=== PATIENT | female | born 1965 | race Two or more races ===

== ENCOUNTER 2018-09-13 13:24 | Emergency (ER) | payer OTHER ==
--- NOTE | 2018-09-13 13:31 | PDOC ---
Rapid Medical Evaluation Time Seen by Provider: 09/13/18 13:28 Medical Evaluation: Allergies Allergy/AdvReac Type Severity Reaction Status Date / Time No Known Allergies Allergy Verified 06/15/16 16:34 09/13/18 13:28 I performed a brief in-person evaluation of this patient. Chief complaint: Throat pain, facial swelling, and fever x 5 days Pertinent physical exam findings: Tenderness right side of neck. Tonsils 2+, not erythematous. Afebrile here. No trisumus. I have ordered the following: Rapid strep. BP 194/107, patient states is taking HTN meds as prescribed. Patient to proceed to the ED for further evaluation. Discharge Disposition - Diagnosis Throat pain in adult Hypertension Qualifiers: Hypertension type: unspecified Qualified Code(s): I10 - Essential (primary) hypertension - Referrals - Patient Instructions - Post Discharge Activity
[2018-09-13 13:32] VITALS: TEMP 98.8; BMI 33.3
[2018-09-13] MEDS ORDERED: LIDOCAINE VISCOUS 2% ORAL/TOP 20 ML UNIT-DOSE CUP MM ONE (14:13)
--- NOTE | 2018-09-13 14:36 | PDOC ---
History of Present Illness - General Chief Complaint: Sore Throat Stated Complaint: SWOLLWN FACE/ THROAT PAIN Time Seen by Provider: 09/13/18 13:28 History Source: Patient Exam Limitations: Language Barrier (Phone Pickle Maker used) Past History - Past Medical History Allergies/Adverse Reactions: Allergies Allergy/AdvReac Type Severity Reaction Status Date / Time No Known Allergies Allergy Verified 06/15/16 16:34 Home Medications: Ambulatory Orders Lisinopril [Prinivil] 40 mg PO DAILY 10/04/12 Amlodipine Besylate [Norvasc -] 2.5 mg PO DAILY 01/25/15 Cyclobenzaprine HCl [Flexeril] 5 mg PO TID PRN #20 tablet 01/25/15 Furosemide [Lasix -] 40 mg PO DAILY 01/25/15 Metoprolol Tartrate [Lopressor -] 25 mg PO BID 01/25/15 Naproxen 500 mg PO BID #30 tablet 05/25/16 Oxycodone HCl/Acetaminophen [Percocet 5/325 -] 1 tab PO Q4H #20 tablet MDD 6 predniSONE [Deltasone -] 40 mg PO DAILY #10 tablet 05/25/16 Cyclobenzaprine HCl [Flexeril -] 10 mg PO HS #7 tablet 06/15/16 Ibuprofen [Motrin -] 600 mg PO TID PRN #21 tablet 06/15/16 Cardiac Disorders: Yes (MILD AORTIC STENOSIS) COPD: No HTN: Yes Hypercholesterolemia: Yes - Suicide/Smoking/Psychosocial Hx Smoking Status: No Smoking History: Never smoked Have you smoked in the past 12 months: No Number of Cigarettes Smoked Daily: 0 Hx Alcohol Use: No Drug/Substance Use Hx: No Substance Use Type: None *Physical Exam - Vital Signs Last Vital Signs Temp Pulse Resp BP Pulse Ox 98.8 F 88 18 194/107 H 98 09/13/18 13:30 09/13/18 13:30 09/13/18 13:30 09/13/18 13:30 09/13/18 13:30 - Physical Exam General Appearance: No: Apparent Distress HEENT: positive: Pharynx Normal, Other (Several dental fillings noted, tooth #2 with filling and some decay noted, no gum swelling, no evidence of dental abscess) Respiratory/Chest: positive: Lungs Clear, Normal Breath Sounds. negative: Respiratory Distress Integumentary: positive: Normal Color Neurologic: positive: Alert, Normal Mood/Affect Moderate Sedation - Procedure Monitoring Vital Signs: Procedure Monitoring Vital Signs Temperature 98.8 F 09/13/18 13:30 Pulse Rate 88 09/13/18 13:30 Respiratory Rate 18 09/13/18 13:30 Blood Pressure 194/107 H 09/13/18 13:30 O2 Sat by Pulse Oximetry (%) 98 09/13/18 13:30 Medical Decision Making - Medical Decision Making 52 y/o F with hx of HTN presents with R upper molar tooth pain x 2 weeks. Saw dentist 2 weeks ago and was prescribed Amoxicillin 500 mg TID x 1 week, but patient was only taking it twice a day and has not yet finished the antibiotics. Has been taking Motrin 800 mg but it does not help with pain and it is painful for her to eat food due to pain. Mentions tooth pain radiating to throat. Denies fever, sob, cp, n/v. Patient teeth in poor condition; multiple fillings with some decay noted at site of teeth Given viscous lidocaine to help with discomfort Will repeat vital signs 09/13/18 14:28 Repeat BP 183/104 Patient asymptomatic Likely elevated from pain Patient did not want Motrin here; received viscous lidocaine States she can f/u with dentist tomorrow 09/13/18 14:42 *DC/Admit/Observation/Transfer Diagnosis at time of Disposition: Pain, dental - Discharge Dispostion Disposition: HOME Condition at time of disposition: Stable Decision to Admit order: No - Referrals - Patient Instructions Printed Discharge Instructions: DI for Dental Pain Additional Instructions: Thank you for choosing [facility]. It was a pleasure taking care of you. You may take Motrin 600 mg every 6 hours by mouth as needed for mild to moderate pain. Take Motrin with food. Please continue the Amoxicillin as was prescribed - three times a day Follow-up with your dentist tomorrow. Return to the Emergency Department if your symptoms worsen or persist or have other concerning symptoms. Charlee por elegir el [facility]. Fue un placer cuidar de ti. Puede deanne Motrin 600 mg cada 6 horas por va oral segn sea necesario para el dolor leve a moderado. Aulander Motrin con la comida. Por favor contine con la amoxicilina segn lo prescrito - faisal veces al da Seguimiento con randall dentista maana. Regrese al Departamento de Emergencias si lakesha sntomas empeoran o persisten o si tiene otros sntomas relacionados. - Post Discharge Activity
[2018-09-13 14:46] VITALS: BP 188/104; PULSE 68
== END 2018-09-13 14:55 | disposition home or self-care (01) ==
LOC: JERFT 13:24
DX: K08.89 Other specified disorders of teeth and supporting structures (principal); I10 Essential (primary) hypertension; E78.00 Pure hypercholesterolemia, unspecified
CPT/HCPCS: 87070; 87880; 99281-25

== ENCOUNTER 2020-08-14 18:27 | Emergency (ER) | payer OTHER ==
[2020-08-14 18:51] VITALS: BP 130/76; PULSE 65; TEMP 98.5; BMI 33.3
== END 2020-08-14 20:24 | disposition home or self-care (01) ==
LOC: JERFT 18:27
DX: K12.2 Cellulitis and abscess of mouth (principal)
CPT/HCPCS: 99283-25

== ENCOUNTER 2020-12-22 11:22 | Emergency (ER) | payer OTHER ==
[2020-12-22 11:25] VITALS: TEMP 97.9; BMI 34.6
[2020-12-22] MEDS ORDERED: KETOROLAC TROMETHAMINE 30 MG/1 ML VIAL IM ONE (12:03)
[2020-12-22] MEDS ORDERED: KETOROLAC TROMETHAMINE 30 MG/1 ML VIAL ONE (12:07)
[2020-12-22 12:35] VITALS: BP 160/52; PULSE 64
== END 2020-12-22 12:36 | disposition home or self-care (01) ==
LOC: JERFT 11:22
PROC: 3E0233Z Introduction of Anti-inflammatory into Muscle, Percutaneous Approach (ICD-10-PCS; principal; 2020-12-22)
DX: M54.42 Lumbago with sciatica, left side (principal)
CPT/HCPCS: 99284-25

== ENCOUNTER → 2022-10-22 | Day surgery (SDC) | payer OTHER | END | disposition home or self-care (01) | LOC: JRADUS-SUR 08:23 | PROVIDERS: ATTEND Nurse Practitioner Family | PROC: 0H9T3ZX Drainage of Right Breast, Percutaneous Approach, Diagnostic (ICD-10-PCS; principal; 2022-10-22) | DX: D24.1 Benign neoplasm of right breast (principal) | CPT/HCPCS: 19083; 76642-TC-LT; 77065-TC; 87899; 88305-TC; 88342-TC; A4648 ==